=== PATIENT | female | born 1935 | race Caucasian/White ===

== ENCOUNTER 2018-07-03 06:00 | Day surgery (SDC) | payer MEDICARE, OTHER ==
[~2018-07-03] VITALS: Ht 152.4 cm; Wt 70.8 kg
[2018-07-03] MEDS ORDERED: LR 1,000 ML IV SCH (10:28)
[2018-07-03] MEDS ORDERED: MORPHINE 4 MG/ML INJ. SYRINGE IVP PRN ×3 (10:30)
[2018-07-03] MEDS ORDERED: METOCLOPRAMIDE HCL 10 MG/2 ML VIAL IVP PRN (10:30)
[2018-07-03] MEDS ORDERED: SEVOFLURANE 15 MIN GAS INH ONE (11:00)
[2018-07-03] MEDS ORDERED: LIDOCAINE/EPI 1% 1:100000 20 ML VIAL INJ ONE (11:00)
[2018-07-03] MEDS ORDERED: LR 1,000 ML IV.SOLN IV ONE (11:00)
[2018-07-03] MEDS ORDERED: PROPOFOL 200MG/ 20ML VIAL (DIPRIVAN) IV ONE (11:00)
[2018-07-03] MEDS ORDERED: NEOSTIGMINE METHYLSULFATE 1 MG/ML, 10 ML VIAL ONE (11:00)
[2018-07-03] MEDS ORDERED: fentaNYL CITRATE/PF 100 MCG/2 ML AMP ONE (11:00)
[2018-07-03] MEDS ORDERED: ROCURONIUM BROMIDE 10 MG/ML (ZEMURON) ONE (11:00)
[2018-07-03] MEDS ORDERED: MIDAZOLAM HCL 5 MG/ML VIAL (VERSED) IV ONE (11:00)
[2018-07-03] MEDS ORDERED: ONDANSETRON HCL 4 MG/2 ML VIAL ONE (11:00)
[2018-07-03] MEDS ORDERED: GLYCOPYRROLATE 0.2 MG/ML VIAL ONE (11:00)
[2018-07-03] MEDS ORDERED: NS IRRIG SOLN 1000 ML IR ONE (11:00)
[2018-07-03] MEDS ORDERED: ACETAMINOPHEN/CODEINE 300 MG-30 MG TABLET PO PRN (11:15)
[2018-07-03] MEDS ORDERED: MORPHINE 4 MG/ML INJ. SYRINGE ONE (11:23)
[2018-07-03 11:59] VITALS: BP_SYST 124
== END 2018-07-03 13:45 | disposition home or self-care (01) ==
LOC: SDS 06:00 → SMU 06:00 → SDS 13:45
PROVIDERS: ATTEND Otolaryngology Plastic Surgery within the Head & Neck
DX: C44.42 Squamous cell carcinoma of skin of scalp and neck (principal); D64.9 Anemia, unspecified; I70.0 Atherosclerosis of aorta; C50.919 Malignant neoplasm of unspecified site of unspecified female breast; E11.22 Type 2 diabetes mellitus with diabetic chronic kidney disease; I12.9 Hypertensive chronic kidney disease with stage 1 through stage 4 chronic kidney disease, or unspecified chronic kidney disease; N18.3 Chronic kidney disease, stage 3 (moderate); E78.5 Hyperlipidemia, unspecified; E03.9 Hypothyroidism, unspecified; H35.30 Unspecified macular degeneration; F32.1 Major depressive disorder, single episode, moderate; M81.0 Age-related osteoporosis without current pathological fracture; Z79.899 Other long term (current) drug therapy; Z98.890 Other specified postprocedural states; Z90.710 Acquired absence of both cervix and uterus; Z79.84 Long term (current) use of oral hypoglycemic drugs; Z79.4 Long term (current) use of insulin; Z88.8 Allergy status to other drugs, medicaments and biological substances; E66.3 Overweight; J44.9 Chronic obstructive pulmonary disease, unspecified; K21.9 Gastro-esophageal reflux disease without esophagitis
CPT/HCPCS: 11626; 15220; 15221; 82962; 88305; J2250; J2270; J2405; J2704; J2710; J3010; J3490; J7120